=== PATIENT | female | born 1975 | race Two or more races ===

== ENCOUNTER 2017-06-23 15:07 | Outpatient (CLI) | payer OTHER | END 2017-06-23 17:09 | disposition home or self-care (01) | LOC: SONOGRAMA 15:07 | DX: M75.51 Bursitis of right shoulder (principal) ==

== ENCOUNTER 2024-11-12 11:23 | Emergency (ER) | payer OTHER ==
[~2024-11-12] VITALS: Ht 162.6 cm; Wt 72.6 kg
[2024-11-12] MEDS ORDERED: MILLIPRED5 MG (12:12)
[2024-11-12] MEDS ORDERED: WARFARIN SODIUM10 MG PO (12:14)
[2024-11-12] MEDS ORDERED: IRBESARTAN75 MG PO (12:14)
[2024-11-12] MEDS ORDERED: TOPROL XL25 M1 (12:14)
[2024-11-12] MEDS ORDERED: VARDENAFIL HCL PO (12:15)
[2024-11-12] MEDS ORDERED: KETOROLAC TROMETHAMINE 60 MG VIAL IM ONE (14:00)
[2024-11-12] MEDS ORDERED: PROPOFOL 10,000 MCG/ML VIAL IV ONE ×2 (14:15→19:15)
[2024-11-12] MEDS ORDERED: 0.9 % SODIUM CHLORIDE 500 ML IV SCH (14:15)
[2024-11-12] MEDS ORDERED: MIDAZOLAM HCL 2 MG/2 ML VIAL IV STA (14:44)
[2024-11-12] MEDS ORDERED: FLUMAZENIL 0.5 MG/5 ML ML IV ONE (15:15)
[2024-11-12] MEDS ORDERED: MIDAZOLAM HCL 2 MG/2 ML VIAL IV PUSH ONE (19:15)
[2024-11-12] MEDS ORDERED: FLUMAZENIL 0.5 MG/5 ML ML IV STA (22:50)
[2024-11-12] MEDS ORDERED: MIDAZOLAM HCL/PF 5 MG/ML VIAL IV STA (22:50)
[2024-11-12] MEDS ORDERED: PROPOFOL 10,000 MCG/ML VIAL IV PUSH STA (22:51)
== END 2024-11-12 23:18 | disposition home or self-care (01) ==
LOC: ER 11:23
DX: S43.085A Other dislocation of left shoulder joint, initial encounter (principal); X83.8XXA Intentional self-harm by other specified means, initial encounter; Y93.89 Activity, other specified; Y92.89 Other specified places as the place of occurrence of the external cause; Y99.8 Other external cause status; I10 Essential (primary) hypertension

== ENCOUNTER 2025-01-21 09:43 | Emergency (ER) | payer OTHER ==
[~2025-01-21] VITALS: Ht 160 cm; Wt 65.8 kg
[~2025-01-21 09:43] MED LIST: IRBESARTAN75 MG PO; MILLIPRED5 MG; TOPROL XL25 M1; VARDENAFIL HCL PO; WARFARIN SODIUM10 MG PO
[2025-01-21] MEDS ORDERED: MORPHINE SULFATE 4 MG/ML CARTRIDGE IV ONE (10:30)
[2025-01-21] MEDS ORDERED: 0.9 % SODIUM CHLORIDE 1,000 ML IV SCH (10:45)
[2025-01-21] MEDS ORDERED: PROPOFOL 10,000 MCG/ML VIAL IV ONE (10:45)
[2025-01-21] MEDS ORDERED: MIDAZOLAM HCL/PF 5 MG/ML VIAL IV ONE (13:15)
[2025-01-21] MEDS ORDERED: FLUMAZENIL 0.5 MG/5 ML ML IV STA (15:29)
[2025-01-21] MEDS ORDERED: KETO10TA2 PO (16:00)
[2025-01-21] MEDS ORDERED: ZANAFLEX4 MG PO (16:00)
== END 2025-01-21 19:15 | disposition home or self-care (01) ==
LOC: ER 09:43
DX: S49.81XA Other specified injuries of right shoulder and upper arm, initial encounter (principal); W19.XXXA Unspecified fall, initial encounter; Y93.89 Activity, other specified; Y92.89 Other specified places as the place of occurrence of the external cause; Y99.8 Other external cause status; M24.412 Recurrent dislocation, left shoulder; M25.512 Pain in left shoulder